=== PATIENT | male | born 1960 | race Caucasian/White ===

== ENCOUNTER → 2024-05-27 | Outpatient (CLI) | payer BC | LOC: M PLAIMG 11:43 | PROVIDERS: ATTEND Otolaryngology | DX: H68.023 Chronic Eustachian salpingitis, bilateral (principal); J34.9 Unspecified disorder of nose and nasal sinuses ==

== ENCOUNTER 2024-12-29 10:29 | Day surgery (SDC) | payer BC ==
[~2024-12-29] VITALS: Ht 182.9 cm; Wt 107.0 kg
[~2024-12-29 10:29] MED LIST: ESOM40CA35 PO; LOSA100T46 PO; METO1TAB32 PO; TADA5TAB2 PO; XARE20TA PO
[2024-12-29] MEDS ORDERED: LR 1,000 ML IV SCH (11:05)
[2024-12-29] MEDS ORDERED: FAMOTIDINE 20 MG/2 ML VIAL IVP ONE (11:05)
[2024-12-29] MEDS ORDERED: MIDAZOLAM INJ 2 MG/2 ML VIAL As Ordered ONE (12:07)
[2024-12-29] MEDS ORDERED: ROCURONIUM BROMIDE 50MG/5ML VIAL As Ordered ONE (12:09)
[2024-12-29] MEDS ORDERED: LIDOCAINE 2% 100 MG/5 ML SDV (FOR ANES.) As Ordered ONE (12:11)
[2024-12-29] MEDS ORDERED: ACETAMINOPHEN 1000MG/100ML IV BAG As Ordered ONE (12:12)
[2024-12-29] MEDS ORDERED: dexAMETHasone 4 MG/ML 1 ML VIAL As Ordered ONE (12:12)
[2024-12-29] MEDS ORDERED: PHENYLephrine 500MCG 5ML (100MCG/ML) SYRINGE As Ordered ONE (12:44)
[2024-12-29] MEDS ORDERED: ONDANSETRON 4MG 2ML VIAL As Ordered ONE (12:54)
[2024-12-29] MEDS: CIPRODEX OTIC SUSP 7.5 ML As Ordered ONE (13:14)
[2024-12-29] MEDS: LIDOCAINE W/EPINEPHrine 1% 20 ML VIAL As Ordered ONE (13:36)
[2024-12-29] MEDS: OXYMETAZOLINE 0.05% NASAL SPRAY As Ordered ONE (13:40)
[2024-12-29] MEDS: METHYLENE BLUE 0.5% (5 MG/ML) 10 ML AMP As Ordered ONE (13:40)
[2024-12-29] MEDS ORDERED: SUGAMMADEX SODIUM 200 MG/2 ML VIAL As Ordered ONE (13:51)
[2024-12-29] MEDS ORDERED: KETOROLAC 30 MG/ML 1 ML VIAL As Ordered ONE (14:06)
[2024-12-29] MEDS ORDERED: MORPHINE 2 MG/ML 1 ML VIAL IV PRN (14:40)
[2024-12-29] MEDS: HYDROMORPHONE HCL 0.5 MG/0.5 ML SYRINGE IV PRN (14:55)
[2024-12-29 16:20] VITALS: BP 146/83; TEMP 96.9; O2SAT 100
== END 2024-12-29 16:27 | disposition home or self-care (01) ==
LOC: M SDC 10:29
PROVIDERS: ATTEND Otolaryngology
DX: H61.813 Exostosis of external canal, bilateral (principal); J32.0 Chronic maxillary sinusitis; J32.2 Chronic ethmoidal sinusitis; H65.33 Chronic mucoid otitis media, bilateral; I48.91 Unspecified atrial fibrillation; I10 Essential (primary) hypertension; K21.9 Gastro-esophageal reflux disease without esophagitis; J44.9 Chronic obstructive pulmonary disease, unspecified; Z79.899 Other long term (current) drug therapy; Z79.01 Long term (current) use of anticoagulants; Z85.828 Personal history of other malignant neoplasm of skin
CPT/HCPCS: 31254; 31256; 69140; 69436; 88304; 88311; J0131; J0690; J1100; J1171; J1885; J2250; J2371; J2405; J3010; Q9968